=== PATIENT | male | born 1955 | race Caucasian/White ===

== ENCOUNTER 2018-05-30 07:41 | Day surgery (SDC) | payer OTHER ==
--- NOTE | 2018-05-08 09:22 | HP ---
DATE OF ADMISSION: 05/30/2018 HISTORY: This is a 63-year-man who presents for reduction of apparent chronically incarcerated ventral hernia with mesh and possible component separation. The patient has had a progressively enlarging bulge which has become progressively more tender over the course of the past year. He has decided to move in the direction of definitive management. The patient has no underlying GI, or respiratory complaints to suggest a predisposition to hernia formation. PAST MEDICAL HISTORY: Nil. No history of hypertension, heart disease, diabetes , respiratory or hepatic insufficiency. PAST SURGICAL HISTORY: Significant for repair of biceps tendon in 2005 as well as management of a neck mass in 2009. ALLERGIES: None known. REGULAR MEDICATIONS: None. SOCIAL HISTORY: Negative for tobacco. Positive for alcohol at six drinks weekly. FAMILY HISTORY: Parents are both in their 90s with medical issues with which he is unfamiliar. His siblings are well. REVIEW OF SYSTEMS: Nil. PHYSICAL EXAMINATION: The abdomen is obese, soft and nontender. There is an obvious hernia involving the central ring of the abdomen, extending up into the upper midline. There is a large associated diastasis recti. The groin is intact with no groin hernia identified clinically. IMPRESSION: Chronically incarcerated ventral hernia. PLAN: Reduction of apparent chronically incarcerated ventral hernia with mesh and possible component separation repair. Indications, alternatives and possible complications were reviewed. Issues relating to the mesh were reviewed with the patient and include, but are not limited to, infection, rejection, migration and neuritides. Consent was obtained. The patient was seen preoperatively by Dr. Preston Meek. Please refer to his notes for those medical details. WENDY LEWIS M.D. SARAN/[id number] cc: Preston Meek MD MTDD
[2018-05-18 09:40] VITALS: BMI 34.9
[2018-05-30] MEDS ORDERED: TAMSULOSIN HCL 0.4 MG CAP ONE (08:19)
[2018-05-30] MEDS ORDERED: SUCCINYLCHOLINE CHLORIDE 200 MG/10 ML VIAL ONE (08:34)
[2018-05-30] MEDS ORDERED: fentaNYL CITRATE 250 MCG/5 ML VIAL ONE (08:34)
[2018-05-30] MEDS ORDERED: MIDAZOLAM HCL 2 MG/2 ML SINGLE DOSE VIAL ONE ×2 (08:34→08:42)
[2018-05-30] MEDS ORDERED: PROPOFOL 20 ML ONE ×2 (08:34)
[2018-05-30] MEDS ORDERED: ROCURONIUM BROMIDE 50 MG/5 ML VIAL ONE ×2 (08:34→10:04)
[2018-05-30] MEDS ORDERED: ceFAZolin SODIUM 1 GM VIAL ONE (08:41)
[2018-05-30] MEDS ORDERED: DEXAMETHASONE SOD PHOSPHATE 4 MG/1 ML VIAL ONE (08:41)
[2018-05-30] MEDS ORDERED: LIDOCAINE HCL/PF 2% SDV 5ML VIAL ONE (08:41)
[2018-05-30] MEDS ORDERED: ONDANSETRON 4 MG/2 ML VIAL ONE (08:41)
[2018-05-30] MEDS ORDERED: ROPIVACAINE HCL 0.5% 30ML VIAL ONE (08:42)
[2018-05-30] MEDS ORDERED: ePHEDrine SULFATE 50 MG/1 ML AMPULE ONE (10:13)
[2018-05-30] MEDS ORDERED: NEOSTIGMINE METHYLSULFATE 0.5 MG/ML - 10 ML MDV ONE (10:51)
[2018-05-30] MEDS ORDERED: GLYCOPYRROLATE 0.2 MG/1 ML VIAL ONE (10:51)
[2018-05-30] MEDS ORDERED: oxyCODONE HCL 5 MG TABLET PO PRN ×2 (11:48)
[2018-05-30] MEDS ORDERED: ONDANSETRON 4 MG/2 ML VIAL IVPUSH PRN ×2 (11:48→13:50)
[2018-05-30] MEDS ORDERED: LACTATED RINGERS SOLUTION 1,000 ML IV SCH (12:00)
--- NOTE | 2018-05-30 13:33 | OP ---
DATE OF OPERATION: 05/30/2018 PREOPERATIVE DIAGNOSIS: Complex chronically incarcerated ventral hernia. POSTOPERATIVE DIAGNOSIS: Complex chronically incarcerated ventral hernia. PROCEDURE: Bilateral component separation, repair of complex chronically incarcerated ventral hernia with mesh. OPERATING SURGEON: Claudio Lal M.D. STOREROOM CLERK: Cirilo Israel M.D. ANESTHESIA: Hoang Fisher M.D. (general) HISTORY: This is a 63-year-old man who presents for a repair of chronically incarcerated ventral hernia involving the central ring of the abdomen in the upper midline. Indications, alternatives, and possible complications reviewed. Consent obtained. DESCRIPTION OF PROCEDURE: With the patient in the supine position and after general anesthesia, the abdomen was prepped and draped in sterile fashion using chlorhexidine. An upper midline incision was made directly over the hernia and carried inferiorly to a distance several centimeters below the umbilicus. The incision was deepened into the subcutaneous space. The hernia sac was easily encountered and from the surrounding subcutaneous tissue and cleaned to the level of the fascial ring. In the midline superiorly, there were several other smaller defects along the course of the midline in a [id number] fashion. The sac was opened, and the entrapped omentum was reduced. The fascial bridges between the small defects were divided creating one larger defect. Now, directing our attention to the patients right side, the posterior rectus sheath was from the overlying right rectus muscle fibers. This was accomplished using sharp dissection, moving in the inferior, lateral, and superior direction, ultimately arriving at the junction of the rectus musculature with the oblique and transversus muscles. Separation of the overlying right oblique muscles from the underlying right transversus muscle ensued using sharp dissection. The retrorectus space on the right was then extended into this plane, and the dissection again continued inferiorly , laterally, and superiorly. Now, directing our attention to the patients left side, the left posterior rectus sheath was from the overlying left rectus muscle fibers. The retrorectus dissection ensured on the left side again inferiorly, laterally, and superiorly, reaching the junction of the rectus musculature with the oblique and transversus muscles. The left oblique muscles were then bluntly from the underlying transversus muscle creating the same space where an extension of the left retrorectus dissection continued, again inferiorly, laterally, and superiorly. Ultimately, the posterior midline was recreated, closing the posterior sheath in the midline with 3-0 Maxon suture material. The composite mesh was then made at the table using a piece of 15 x 15 cm mesh, which was sutured to a piece of similar sized OviTex mesh. This was accomplished using interrupted 3-0 Vicryl sutures circumferentially. The mesh was soaked in saline and then placed in the retrorectus space where it was fanned out to fill the space completely. The OviTex side down. The permanent mesh side up. Using an AbsorbaTack on counter palpation, the periphery of the mesh was then tacked to the overlying musculature securing the mesh in place. The wound was irrigated and irrigant retrieved. Adequate hemostasis ensured. The midline fascia was closed using interrupted and continuous 0 PDS sutures, leaving the mesh entirely in the retrorectus space. The subcutaneous tissues were irrigated and adequate hemostasis ensured. The wound was closed in layers. Subcutaneous tissues were approximated using interrupted 3-0 chromic suture. The skin edges were approximated using metallic clips. NEEDLE, SPONGE, AND INSTRUMENT COUNT: Correct. ESTIMATED BLOOD LOSS: Minimal. SPECIMENS: None. DRAINS: None. IMPLANTS: Composite mesh. Patient was ultimately transferred to the recovery room. Dipak [id number] MTDD
[2018-05-30] MEDS ORDERED: morphine SULFATE 4 MG/ML VIAL IVPB PRN (13:41)
[2018-05-30] MEDS ORDERED: KETOROLAC TROMETHAMINE 15 MG/ML VIAL IVPB PRN (13:43)
[2018-05-30] MEDS ORDERED: D5-1/2NS+20 MEQ KCL - 20 MEQ/1,000 ML INFUS.BAG IV SCH (13:45)
[2018-05-30] MEDS ORDERED: ACETAMINOPHEN 1000 MG/100 ML VIAL (NON FORMULARY) IVPB ONE (14:00)
[2018-05-30] MEDS ORDERED: ACETAMINOPHEN INJECTION 100 ML IVPB ONE (14:13)
[2018-05-30] MEDS ORDERED: ACETAMINOPHEN 325 MG TABLET (FP) PO PRN (21:00)
[2018-05-30] MEDS: FAMOTIDINE 20 MG/50 ML IVPB 20 MG/50 ML MG IVPB SCH (21:11)
[2018-05-31] MEDS: FAMOTIDINE 20 MG/50 ML IVPB 20 MG/50 ML MG IVPB SCH (09:22)
[2018-05-31] MEDS ORDERED: ENOXAPARIN NA (PORCINE) 40 MG/0.4 ML DISP.SYRIN SQ SCH (10:00)
[2018-05-31 11:37] VITALS: BP 125/66; PULSE 69; TEMP 98.2
== END 2018-05-31 11:32 | disposition home or self-care (01) ==
LOC: FASU 07:41 → FM/S 18:39 → FASU 05-31 11:32
PROVIDERS: ATTEND Surgery
PROC: 0JX80ZC Transfer Abdomen Subcutaneous Tissue and Fascia with Skin, Subcutaneous Tissue and Fascia, Open Approach (ICD-10-PCS; 2018-05-30)
PROC: 0WUF0JZ Supplement Abdominal Wall with Synthetic Substitute, Open Approach (ICD-10-PCS; principal; 2018-05-30 10:05)
DX: K43.6 Other and unspecified ventral hernia with obstruction, without gangrene (principal)
CPT/HCPCS: 94760; J0131

== ENCOUNTER 2019-11-14 07:29 | Day surgery (SDC) | payer OTHER ==
[2019-11-14 08:08] VITALS: BMI 35.7
[2019-11-14] MEDS ORDERED: MIDAZOLAM HCL 2 MG/2 ML SINGLE DOSE VIAL ONE ×2 (08:27→09:05)
[2019-11-14] MEDS ORDERED: ROPIVACAINE HCL 0.5% 30ML VIAL ONE (08:27)
--- NOTE | 2019-11-14 08:27 | OP ---
Operative Note - Note: Operative Date: 11/14/19 Pre-Operative Diagnosis: Rotator cuff tear Operation: Rotator cuff repair Post-Operative Diagnosis: Same as Pre-op Surgeon: Jerry Powell Sdc Teacher: Gerri Valencia Anesthesia: General Operative Report Dictated: Yes
[2019-11-14] MEDS ORDERED: LABETALOL HCL 5 MG/1 ML (100MG/20 ML VIAL) ONE (09:36)
[2019-11-14] MEDS ORDERED: ceFAZolin SODIUM 1 GM VIAL ONE (09:36)
[2019-11-14] MEDS ORDERED: TRANEXAMIC ACID 1000 MG/10 ML VIAL ONE (09:52)
[2019-11-14] MEDS ORDERED: PROPOFOL 20 ML ONE ×3 (10:15→11:54)
[2019-11-14] MEDS ORDERED: LIDOCAINE 1%/EPI 1:100000 (20 ML MULTI DOSE VIAL) ONE (11:20)
[2019-11-14 12:34] VITALS: TEMP 97.5
[2019-11-14] MEDS ORDERED: ONDANSETRON 4 MG/2 ML VIAL IVPUSH PRN (12:42)
[2019-11-14] MEDS ORDERED: oxyCODONE HCL 5 MG TABLET PO PRN ×2 (12:42)
[2019-11-14] MEDS ORDERED: LACTATED RINGERS SOLUTION 1,000 ML IV SCH (12:45)
[2019-11-14 15:21] VITALS: PULSE 54
[2019-11-14 15:43] VITALS: BP 136/86
--- NOTE | 2019-11-15 14:22 | OP ---
DATE OF OPERATION: 11/14/2019 PREOPERATIVE DIAGNOSES: Left shoulder rotator cuff tear, biceps tendinopathy, subacromial impingement. POSTOPERATIVE DIAGNOSES: Left shoulder rotator cuff tear, biceps tendinopathy, subacromial impingement. PROCEDURE: Left shoulder arthroscopy with repair of subscapularis, supraspinatus and infraspinatus, biceps tenodesis and subacromial decompression. SURGEON: Gypsy Silveira MD NARCOTICS AGENT: ALDO Min, whose skillful assistance was necessary for the safe and timely performance of this procedure. Ms. Valencia was available to provide limb positioning, traction, assist in driving the camera, suture passage as well as insertion of orthopedic and hardware. ANESTHESIA: Regional with sedation. POSTOPERATIVE CONDITION: Stable. COMPLICATIONS: None. IMPLANTS: Q-FIX MINI x1, Q-FIX , HEALICOIL PEEK anchor x2, MULTIFIX anchor x2. INDICATION: This is a pleasant 64-year-old gentleman experiencing shoulder pain. He failed to improve with conservative means. MRI was obtained and showed a rotator cuff tear. In addition, he was noted to have biceps tendinopathy and impingement as well. Treatment options were discussed including nonoperative versus operative management. Operative risks were reviewed in detail including bleeding, infection, neurovascular injury, need for further surgery, postoperative pain and stiffness, or re-tear of the cuff. We discussed medical risks such as heart attack, stroke, DVT, PE and . He did receive some perioperative antibiotic and DVT prophylaxis. I addressed all the patient's questions and concerns. We reviewed the rehabilitation protocol. He voiced understanding and elected to proceed. PROCEDURE: the operating room. He was placed into the beach-chair position while still awake. Care was taken in positioning of the cervical spine and pad all the bony prominences. Feet were placed rests. The left upper extremity was then examined, demonstrating full range of motion and no instability. The patient was then prepped and draped in the usual sterile fashion. A preoperative dose of antibiotics was given, and the usual timeout procedure was performed. The shoulder joint was then marked out. The posterior portal was now established using an 11 blade. The arthroscope was passed into the joint. Examination of the glenohumeral joint demonstrated some mild superficial articular wear on the glenoid and humeral surfaces. There was diffuse moderate to severe fraying of the superior labrum extending into the biceps tendon. There was some frayed tissue noted at the upper border of the subscapularis tendon. There was a tear noted in the supraspinatus extending into the infraspinatus. The anterior portal was now established under spinal needle localization. Utilizing a mechanical shaver as well as electrocautery, the superior labrum was debrided. The subscapularis was debrided. Biceps was debrided. The rotator cuff was debrided. visualize the biceps cuff, and there was extensive tendinopathy present. The decision was made to perform a biceps tenodesis. A luggage tag suture was passed using a FirstPast suture through the biceps and then utilizing a mechanical shaver was released from the superior labrum. The superior labrum was debrided using the shaver and electrocautery. The biceps was then retracted into its groove by muscle belly. The attention was turned to the subscapularis. Here, the partial-thickness tear noted. The lesser tuberosity, where the tear was, was debrided using the mechanical shaver. A single was then drilled and inserted at the upper border of the lesser tuberosity. A bird beak suture passer was then used to pass the suture through the subscapularis in simple fashion, securing the subscapularis to the lesser tuberosity. The joint was passed through a range of motion and the repair was found to be stable. A similar debridement of the greater tuberosity was now performed to the joint, and after this was done, the arthroscope was passed into the subacromial space. Here, the rotator cuff tear was visualized. The remainder of the debridement of the was evaluated. The decision was made to perform a double-row repair here. Two medial row anchors were and then inserted. The sutures were then passed through the cuff anteriorly and then posteriorly. At this point, the 2 more anterior sutures were loaded into a MULTIFIX anchor. The anchor was then punched and toggled just lateral to the greater tuberosity, securing the anterior most portion of the cuff down. The same procedure was then repeated posteriorly, and in addition, a luggage tag-type suture was passed between the anterior and posterior sutures on the lateral edge of the cuff to provide additional fixation and prevent dog earring of the tissue. At this point, the cuff was passed through a range of motion and the repair was found to be stable. It should be noted that, prior to starting the cuff repair, a subacromial bursectomy was performed utilizing a shaver as well as the electrocautery. The mechanical shaver was then used to smooth the undersurface of the acromion all the way up to the acromioclavicular joint. At this point, the excess fluid was withdrawn from the subacromial space. The shoulder was reprepped now. An incision was drawn on over the pectoralis tendon. This was the injected subcutaneously with 1% lidocaine with epinephrine. The incision was then carried down through skin, through subcutaneous tissue. Blunt spreading was used to expose the pectoralis tendon. Medial dissection was then carried out to expose the biceps tendon. After freeing the biceps the anterior portion of the bone. An arthroscopic rasp was now passed up and down the biceps groove to provide a good healing surface. Q-FIX anchor drill guide was then inserted into the portion of the biceps groove and the anchor was drilled into place. Good fixation was achieved. The sutures were then whip-stitched. Utilizing a shanel technique, the sutures were then used to pull the biceps back into the groove and then tied in place, securing it. The wound was now copiously irrigated. The sutures were cut prior to irrigation. The subcutaneous tissue was then approximated using 3-0 Vicryl. The skin was closed using running 4-0 nylon. Sterile dressings were then placed. Patient was placed into a sling. He was transferred to the recovery room in stable condition. GYPSY SILVEIRA M.D. [id number]
--- NOTE | 2019-11-19 16:11 | PATH ---
Surgical Pathology Report Patient Name: KARAN GAINES Med. Rec. #: [id number] /Age/Gender: 1955 (Age: 64) / M Account: [id number] Location: [facility], [facility]–1983 AMBULATORY Taken: 11/14/2019 Received: 11/14/2019 Reported: 11/19/2019 Physicians: Jerry Poewll M.D. Specimen(s) Received LEFT BICEP TENDON Clinical History Left shoulder rotator cuff tear Final Diagnosis LEFT BICEP TENDON, RESECTION: SYNOVIAL AND TENDINOUS TISSUE SHOWING FOCAL DEGENERATIVE AND REACTIVE CHANGE. Electronically Signed Milton Galvan M.D. Gross Description Received in formalin labeled "left bicep tendon," is a 6.5 x 1.0 x 0.4 cm schwarz portion of fibrous tissue, consistent with a tendon. Distilling Department Supervisor sections are submitted in one cassette. /11/15/2019 saudi/11/15/2019
== END 2019-11-14 15:00 | disposition home or self-care (01) ==
LOC: FASU 07:29
PROVIDERS: ATTEND Orthopaedic Surgery Sports Medicine
PROC: 0LQ24ZZ Repair Left Shoulder Tendon, Percutaneous Endoscopic Approach (ICD-10-PCS; principal; 2019-11-14 09:37)
PROC: 0LS44ZZ Reposition Left Upper Arm Tendon, Percutaneous Endoscopic Approach (ICD-10-PCS; 2019-11-14 09:37)
PROC: 0RNK4ZZ Release Left Shoulder Joint, Percutaneous Endoscopic Approach (ICD-10-PCS; 2019-11-14 09:37)
DX: M75.122 Complete rotator cuff tear or rupture of left shoulder, not specified as traumatic (principal); M75.22 Bicipital tendinitis, left shoulder; M75.42 Impingement syndrome of left shoulder
CPT/HCPCS: 88304-TC; 94760

== ENCOUNTER 2020-01-20 10:13 | Emergency (ER) | payer OTHER ==
[2020-01-20 10:16] VITALS: TEMP 98.1; BMI 38.3
[2020-01-20] MEDS ORDERED: SODIUM CHLORIDE 500 ML IV STA (10:32)
--- NOTE | 2020-01-20 10:32 | PDOC ---
History of Present Illness - General Chief Complaint: Blood Pressure Problem Stated Complaint: HTN, DIZZY Time Seen by Provider: 01/20/20 10:31 History Source: Patient Exam Limitations: No Limitations - History of Present Illness Initial Comments: 01/20/20 10:53 64y M hx of gout, recent rotator cuff surgery (2 months ago) currently under going PT rpesensts with htn. Patient states that she was doing well, was in physical therapy finishing up when he suddenly felt lightheaded, they checked his blood pressure and noticed it was hypotensive so sent the patient to the ER for evaluation. Patient states that he was otherwise feeling fine recently, he has been told his blood pressure was elevated several months ago by his primary care doctor who noticed that during a routine visit, his plan was to reassess it and see if it improves with behavioral modifications/diet. Patient does note that he occasionally checks his blood pressure at home and it typically is a little bit elevated (150s sbp). He states that this weekend he was out in the sun [place] lot of crabs and drank some alcohol, Daughter thinks maybe this may be related to symptoms today. Otherwise feels okay denies any headache, current chest pain, abdominal pain, nausea vomiting, diaphoresis, back pain, increased extremity edema. Denies any diarrhea, blood per rectum, dysuria. Notes a brief episode of chest burning early this morning that was nonexertional lasting for 1 to 2 minutes that resolved without associated diaphoresis, shortness of breath, dyspnea on exertion. Social history: Works in construction, social alcohol, denies any smoking, recreational drug use PMD: Fader Past History - Medical History Allergies/Adverse Reactions: Allergies Allergy/AdvReac Type Severity Reaction Status Date / Time venom-honey bee Allergy Intermediate hives Verified 01/20/20 10:14 [bee venom (honey bee)] No Known Drug Allergies Allergy Verified 01/20/20 10:14 Home Medications: Ambulatory Orders Allopurinol [Zyloprim -] 150 mg PO DAILY 11/11/19 Colchicine 1 tab PO DAILY 11/11/19 Gabapentin 300 mg PO DAILY 11/11/19 Anemia: No Asthma: No Cancer: No Cardiac Disorders: No CVA: No COPD: No CHF: No Dementia: No Diabetes: No GI Disorders: No Disorders: No HTN: No Hypercholesterolemia: No Liver Disease: No Seizures: No Thyroid Disease: No Other medical history: GOUT - Surgical History Abdominal Surgery: No Appendectomy: No Cardiac Surgery: No Cholecystectomy: No Lung Surgery: No Neurologic Surgery: No Orthopedic Surgery: Yes (L arm tendon repair) - Psycho-Social/Smoking History Smoking History: Never smoked Have you smoked in the past 12 months: No - Substance Abuse Hx (Audit-C & DAST Scrn) How often the patient has a drink containing alcohol: 2-4 times / month Number of drinks the patient has on a typical day: 1 or 2 How often the patient has six or more drinks on one occasion: Never Score: In Men: 4 or > Positive; In Women: 3 or > Positive: 2 Screen Result (Pos requires Nsg. Audit-10AR): Negative In the last yr the pt used illegal drug/Rx for NonMed reason: No Score: Yes response is considered Positive: 0 Screen Result (Positive result requires Nsg. DAST-10): Negative Review of Systems - Review of Systems Able to Perform ROS?: Yes Comments:: 01/20/20 10:56 My constitutional - no reported Fever, Chills, HEENT: no reported vision changes, sore throat Respiratory: no reported cough, sob, hemoptysis Cardiac: +light headedness, no reported chest pain, palpitations, leg swelling Abd/GI: no reported abd pain, nausea, vomiting, blood per rectum, melena, diarrhea : no reported dysuria, frequency, discharge Musculskelatal - no reported back pain, joint swelling skin - no reported bruising, erythema, rash neurological: no reported headache, numbness, focal weakness, tingling, ataxia, hematologic: no reported easy bruising, easy bleeding *Physical Exam - Vital Signs Last Vital Signs Temp Pulse Resp BP Pulse Ox 98.1 F 61 17 188/108 H 97 01/20/20 10:13 01/20/20 10:13 01/20/20 10:13 01/20/20 10:13 01/20/20 10:13 - Physical Exam 01/20/20 10:57 GENERAL: The patient is awake, alert, and fully oriented, Nontoxic - in no acute distress. HEAD: Normocephalic, atraumatic. EYES: extraocular movements intact, sclera anicteric, conjunctiva clear. ENT: Normal voice, Moist mucous membranes. NECK: Normal range of motion, supple LUNGS: Breath sounds equal, clear to auscultation bilaterally. No wheezes, no rhonchi, no rales. HEART: Regular rate and rhythm, normal S1 and S2 without murmur, rub or gallop. ABDOMEN: Soft, nontender, No guarding, no rebound. No CVA tenderness EXTREMITIES: Normal range of motion, bl trace edema. NEUROLOGICAL: No facial assymetry, Normal speech, PSYCH: Normal mood, normal affect. SKIN: Warm, Dry, normal turgor, Heart Score/ECG Review - ECG Impressions Comment:: 01/20/20 10:57 Twelve-lead EKG was performed and reviewed by me. There is normal sinus rhythm with a Rate of 59 The axis is normal. The intervals are normal. No ST changes suggestive of acute ischemia We have made 3 and aVF Impression: Sinus bradycardia ED Treatment Course - LABORATORY CBC & Chemistry Diagram: 01/20/20 10:21 01/20/20 10:21 Medical Decision Making - Medical Decision Making 01/20/20 10:58 His lightheadedness may be secondary to dehydration and salt intake The weekend, will give the patient fluids for hydration, will check his lab work to rule out anemia, metabolic derangement Will obtain EKG and troponin to screen for ACS 01/20/20 12:21 The patient's lab work was reviewed it is unremarkable the patient's EKG also is unremarkable his blood pressure is improved. The patient follow-up with Dr. wesley with outpatient follow-up and monitoring of his blood pressure. I discussed the physical exam findings, ancillary test results and final diagnoses with the patient. I answered all of the patient's questions. The patient was satisfied with the care received and felt comfortable with the discharge plan and treatment plan. The patient will call their primary care physician within 24 hours to arrange follow-up and will return to the Emergency Department with any new, persistent or worsening symptoms. Discharge - Discharge Information Problems reviewed: Yes Clinical Impression/Diagnosis: Lightheaded Hypertension Qualifiers: Hypertension type: unspecified Qualified Code(s): I10 - Essential (primary) hypertension Condition: Improved Disposition: HOME - Admission No - Follow up/Referral Referrals: Preston Meek MD [Primary Care Provider] - - Patient Discharge Instructions Patient Printed Discharge Instructions: DI for High Blood Pressure, How to Monitor Your Blood Pressure at Home Additional Instructions: Return to the emergency department immediately with ANY new, persistent or worsening symptoms including any shortness of breath, chest pain, nausea, vomiting, sweating or any other concerns. Take your blood pressure first in the morning for the next week until you see Dr. Meek You MUST call and follow up with Dr. Michaud in 4 to 5 days for further evaluation Your blood pressure. Results were discussed with you. Please make sure your doctor reviews the results of your emergency evaluation. Your Emergency Department visit is not complete without a follow up with your doctor. Print Language: MOSOTHO - Post Discharge Activity
--- OUTSIDE RECORDS SUMMARY | 2020-01-20 10:58 | XMS ---
:1955 Author Organization [facility] Care Team Providers Name Role Phone AndsergioeStephan C Unavailable Androne, C Unavailable Androne, C Unavailable Androne, C Unavailable Androne, C Unavailable Androne, C Unavailable Androne, C Unavailable Androne, C Unavailable Fader, M Unavailable Fader, M Unavailable Fader, M Unavailable Fader, M Unavailable Fader, M Unavailable Fader, M Unavailable Fader, M Unavailable Fader, M Unavailable Fader, M Unavailable Fader, M Unavailable Fader, M Unavailable Fader, M Unavailable Fader, M Unavailable Fader, M Unavailable Re-disclosure Warning The records that you are about to access may contain information from federally- assisted alcohol or drug abuse programs. If such information is present, then the following federally mandated warning applies: This information has been disclosed to you from records protected by federal confidentiality rules (42 CFR part 2). The federal rules prohibit you from making any further disclosure of this information unless further disclosure is expressly permitted by the written consent of the person to whom it pertains or as otherwise permitted by 42 CFR part 2. A general authorization for the release of medical or other information is NOT sufficient for this purpose. The Federal rules restrict any use of the information to criminally investigate or prosecute any alcohol or drug abuse patient.The records that you are about to access may contain highly sensitive health information, the redisclosure of which is protected by Article 27-F of the [facility] Public Health law. If you continue you may haveaccess to information: Regarding HIV / AIDS; Provided by facilities licensed or operated by the [facility] Office of Mental Health; or Provided by the [facility] Office for People With Developmental Disabilities. If such information is present, then the following [facility] mandated warning applies: This information has been disclosed to you from confidential records which are protected by state law. State law prohibits you from making any further disclosure of this information without the specific written consent of the person to whom it pertains, or as otherwise permitted by law. Any unauthorized further disclosure in violation of state law may result in a fine or residential sentence or both. A general authorization for the release of medical or other information is NOT sufficient authorization for further disclosure. Allergies and Adverse Reactions Type Description Substance Reaction Status Data Source(s ) Allergy to APIS MELLIFERA Synonym(s): BEE Active MEDGE N (St Substance VENOM VENOM; [facility], BEE VENOM; APIS PC) VENENUM PURUM [HPUS]; BEE VENOM [INCI]; BEE VENOM [WHO-DD]; APIS VENENUM PURUM; ABEILLE DOMESTIQUE VENOM; ALLERGENIC EXTRACT, HONEY BEE VENOM; HONEY BEE VENOM PROTEIN; APIS MELLIFERA VENOM PROTEIN EXTRACT; ALLERGENIC EXTRACT, HONEY BEE VENOM [VANDF]; HONEYBEE VENOM; ALLERGENIC EXTRACT- HONEY BEE VENOM; APIS MELLIFERA WHITNEY PROTEIN; AE-VENOM, HONEY BEE; HONEY BEE VENOM; VENOMS, HONEY BEE VENOM Allergy to APIS MELLIFERA Synonym(s): BEE Active MEDGE N (St Substance VENOM VENOM; [place]; APIS PC) VENENUM PURUM [HPUS]; BEE VENOM [INCI]; BEE VENOM [WHO-DD]; APIS VENENUM PURUM; ABEILLE DOMESTIQUE VENOM; ALLERGENIC EXTRACT, HONEY BEE VENOM; HONEY BEE VENOM PROTEIN; APIS MELLIFERA VENOM PROTEIN EXTRACT; ALLERGENIC EXTRACT, HONEY BEE VENOM [VANDF]; HONEYBEE VENOM; ALLERGENIC EXTRACT- HONEY BEE VENOM; APIS MELLIFERA WHITNEY PROTEIN; AE-VENOM, HONEY BEE; HONEY BEE VENOM; VENOMS, HONEY BEE VENOM Allergy to APIS MELLIFERA Synonym(s): BEE Active MEDGE N (St Substance VENOM VENOM; [place] VENOM; APIS PC) VENENUM PURUM [HPUS]; BEE VENOM [INCI]; BEE VENOM [WHO-DD]; APIS VENENUM PURUM; ABEILLE DOMESTIQUE VENOM; ALLERGENIC EXTRACT, HONEY BEE VENOM; HONEY BEE VENOM PROTEIN; APIS MELLIFERA VENOM PROTEIN EXTRACT; ALLERGENIC EXTRACT, HONEY BEE VENOM [VANDF]; HONEYBEE VENOM; ALLERGENIC EXTRACT- HONEY BEE VENOM; APIS MELLIFERA WHITNEY PROTEIN; AE-VENOM, HONEY BEE; HONEY BEE VENOM; VENOMS, HONEY BEE VENOM Encounters Encounter Providers Location Date Indications Data Source(s ) Attender: Preston 11/20/2019 MEDGEN ( [facility] 12:00:00 AM [facility]) Telehealth Attender: Preston Meek 11/20/2019 12:00:00 AM E DT MEDGEN ([facility]) Telehealth Attender: Preston Meek 11/20/2019 12:00:00 AM E DT MEDGEN ([facility]) Telehealth Attender: Preston Meek 11/20/2019 12:00:00 AM E DT MEDGEN ([facility]) Telehealth Attender: Stephan Johnson 11/11/2019 12:00:00 AM EDT MEDGEN ([facility]) Office Attender: Stephan Johnson 11/11/2019 12:00:00 AM EDT MEDGEN ([facility]) Office Attender: Stephan Johnson 11/11/2019 12:00:00 AM EDT MEDGEN ([facility]) Office Attender: Stephan Johnson 11/11/2019 12:00:00 AM EDT MEDGEN ([facility]) Office Attender: Stephan Johnson 11/11/2019 12:00:00 AM EDT MEDGEN ([facility]) Office Attender: Preston Meek 10/09/2019 12:00:00 AM E DT MEDGEN ([facility]) Office Attender: Preston Meek 10/09/2019 12:00:00 AM E DT MEDGEN ([facility]) Office Attender: Preston Meek 10/09/2019 12:00:00 AM E DT MEDGEN ([facility]) Office Attender: Preston Meek 10/09/2019 12:00:00 AM E DT MEDGEN ([facility]) Office Attender: Preston Meek 10/09/2019 12:00:00 AM E DT MEDGEN ([facility]) Office Attender: Preston Meek 10/09/2019 12:00:00 AM E DT MEDGEN ([facility]) Office Medications Medication Brand Start Product Dose Route Administrative Pharmacy [facility] Heart Indications Reaction Description Data Name Date Form Instructions Instructions Source(s) gabapentin GABAPE 11/19/ CAPSULE 60 complet SUSU PENTIN MEDGEN (St 300 MG Oral NTIN:3 2019 ed [facility] Capsule 02888 12:00: Medical, GABAPENTIN: 00 AM PC) [id number] EDT Allopurinol ALLOPU 10/08/ TABLET 30 complet ALLO PURINOL MEDGEN (St 100 MG Oral RINOL: 2019 ed [facility] Tablet [id number] 12:00: Medical, ALLOPURINOL 00 AM PC) :[id number] EDT Cholecalcif VITAMI 10/08/ TABLET 30 complet EULALIO MIN D3 MEDGEN (St yandy 2000 N 2019 ed [facility] UNT Oral D3:801 12:00: Medical , Tablet 663 00 AM PC) VITAMIN EDT [id number] Allopurinol ALLOPU 10/08/ TABLET 30 complet ALLO PURINOL MEDGEN (St 100 MG Oral RINOL: 2019 ed [facility] Tablet [id number] 12:00: Medical, ALLOPURINOL 00 AM PC) :[id number] EDT Colchicine COLCHI 17/ TABLET 30 complet COLCH ICINE MEDGEN (St 0.6 MG Oral CINE:1 2019 ed [facility] Tablet [id number] 12:00: Medical, COLCHICINE: 00 AM PC) [id number] EDT Famotidine FAMOTI /17/ TABLET 180 complet FAMOT IDINE MED[facility] (St 20 MG Oral DINE:3 2019 ed [facility] Tablet [id number] 12:00: Medical, FAMOTIDINE: 00 AM PC) [id number] EDT Famotidine FAMOTI /17/ TABLET 180 complet FAMOT IDINE MEDGEN (St 20 MG Oral DINE:3 2019 ed [facility] Tablet 84101 12:00: Medical, FAMOTIDINE: 00 AM PC) [id number] EDT Famotidine FAMOTI /17/ TABLET 180 complet FAMOT IDINE MEDGEN (St 20 MG Oral DINE:3 2019 ed [facility] Tablet 54224 12:00: Medical, FAMOTIDINE: 00 AM PC) [id number] EDT Colchicine COLCHI 17/ TABLET 30 complet COLCH ICINE MEDGEN (St 0.6 MG Oral CINE:1 2019 ed [facility] Tablet 60115 12:00: Medical, COLCHICINE: 00 AM PC) [id number] EDT Cholecalcif VITAMI 17/ TABLET 30 complet EULALIO MIN D3 MEDGEN (St yandy 1999 N 2019 ed [facility] UNT Oral D3:801 12:00: Medical , Tablet 663 00 AM PC) VITAMIN EDT D3:707489 Allopurinol ALLOPU 17/ TABLET 30 complet ALLO PURINOL MEDGEN (St 100 MG Oral RINOL: 2019 ed [facility] Tablet [id number] 12:00: Medical, ALLOPURINOL 00 AM PC) :[id number] EDT Cholecalcif VITAMI /17/ TABLET 30 complet EULALIO MIN D3 MEDGEN (St yandy 1999 N 2019 ed [facility] UNT Oral D3:801 12:00: Medical , Tablet 663 00 AM PC) VITAMIN EDT D3:671105 Colchicine COLCHI /17/ TABLET 30 complet COLCH ICINE MEDGEN (St 0.6 MG Oral CINE:1 2019 ed [facility] Tablet 23756 12:00: Medical, COLCHICINE: 00 AM PC) [id number] EDT Insurance Providers Payer name Policy type Policy ID Covered Covered libertarian's Policy P jennifer / Coverage libertarian ID relationship to [facility] Inf ormation type mcclain [facility] [id number] [employer] [place] [id number] HEALTHCARE [facility] [id number] S [id number] 396 CARE HMO/POS/EPO [facility] [id number] 396 CARE HMO/POS/EPO [facility] [id number] [place] [id number] 396 CARE HMO/POS/EPO Problems, Conditions, and Diagnoses Code Display Name Description Problem Effective Data Type Dates Source(s) Z47.1 Aftercare following AFTERCARE FOLLOWING Problem 020 MEDGEN (St joint replacement JOINT REPLACEMENT 12:00:00 AM [facility] surgery SURGERY [facility], ) R73.01 Impaired fasting IMPAIRED FASTING Problem 11/11/2019 ME DGEN (St glucose GLUCOSE 12:00:00 AM [facility]) M75.102 Unspecified rotator UNSPECIFIED ROTATOR Problem 020 MEDGEN (St cuff tear or rupture CUFF TEAR OR RUPTURE 12:00 :00 AM [facility] of left shoulder, OF LEFT SHOULDER, [facility], ) not specified as NOT SPECIFIED traumatic TRAUMATIC E78.5 Hyperlipidemia, HYPERLIPIDEMIA, Problem 11/11/2019 MEDG EN (St unspecified UNSPECIFIED 12:00:00 AM [facility], ) R03.0 Elevated ELEVATED Problem 11/11/2019 MEDGEN (St blood-pressure BLOOD-PRESSURE 12:00:00 AM [facility] reading, without READING, WITHOUT EDT [facility], ) diagnosis of DIAGNOSIS OF hypertension HYPERTENSION R73.01 Impaired fasting IMPAIRED FASTING Problem 11/11/2019 ME DGEN (St glucose GLUCOSE 12:00:00 AM [facility], ) M75.102 Unspecified rotator UNSPECIFIED ROTATOR Problem 020 MEDGEN (St cuff tear or rupture CUFF TEAR OR RUPTURE 12:00 :00 AM [facility] of left shoulder, OF LEFT SHOULDER, [facility], ) not specified as NOT SPECIFIED traumatic TRAUMATIC E78.5 Hyperlipidemia, HYPERLIPIDEMIA, Problem 11/11/2019 MEDG EN (St unspecified UNSPECIFIED 12:00:00 AM [facility], ) R03.0 Elevated ELEVATED Problem 11/11/2019 MEDGEN (St blood-pressure BLOOD-PRESSURE 12:00:00 AM [facility] reading, without READING, WITHOUT EDT [facility], ) diagnosis of DIAGNOSIS OF hypertension HYPERTENSION M79.603 Pain in arm, PAIN IN ARM, Problem 10/09/2019 MEDGEN (St unspecified UNSPECIFIED 12:00:00 AM [facility]'s EDT [facility], ) M79.602 Pain in left arm PAIN IN LEFT ARM Problem 10/09/2019 ME DGEN (St 12:00:00 AM [facility]'s EDT [facility], ) G47.8 Other sleep OTHER SLEEP Problem 10/09/2019 MEDGEN (St disorders DISORDERS 12:00:00 AM [facility]'s EDT [facility], ) M25.552 Pain in left hip PAIN IN LEFT HIP Problem 10/09/2019 ME DGEN (St 12:00:00 AM [facility]'s EDT [facility], ) M25.512 Pain in left PAIN IN LEFT Problem 10/09/2019 MEDGEN (St shoulder SHOULDER 12:00:00 AM [facility]'s EDT [facility], ) M79.603 Pain in arm, PAIN IN ARM, Problem 10/09/2019 MEDGEN (St unspecified UNSPECIFIED 12:00:00 AM [facility] EDT Medical, ) M79.602 Pain in left arm PAIN IN LEFT ARM Problem 10/09/2019 ME DGEN (St 12:00:00 AM [facility]'s EDT [facility], ) G47.8 Other sleep OTHER SLEEP Problem 10/09/2019 MEDGEN (St disorders DISORDERS 12:00:00 AM [facility] EDT Medical, ) M25.552 Pain in left hip PAIN IN LEFT HIP Problem 10/09/2019 ME DGEN (St 12:00:00 AM [facility]'s EDT [facility], ) M25.512 Pain in left PAIN IN LEFT Problem 10/09/2019 MEDGEN (St shoulder SHOULDER 12:00:00 AM [facility] EDT Medical, ) M79.603 Pain in arm, PAIN IN ARM, Problem 10/09/2019 MEDGEN (St unspecified UNSPECIFIED 12:00:00 AM [facility] EDT Medical, ) M79.602 Pain in left arm PAIN IN LEFT ARM Problem 10/09/2019 ME DGEN (St 12:00:00 AM [facility]'s EDT [facility], ) G47.8 Other sleep OTHER SLEEP Problem 10/09/2019 MEDGEN (St disorders DISORDERS 12:00:00 AM [facility], ) M25.552 Pain in left hip PAIN IN LEFT HIP Problem 10/09/2019 ME DGEN (St 12:00:00 AM [facility], ) M25.512 Pain in left PAIN IN LEFT Problem 10/09/2019 MEDGEN (St shoulder SHOULDER 12:00:00 AM [facility], ) M10.9 Gout, unspecified GOUT, UNSPECIFIED Problem 05/31/2019 MEDGEN (St 12:00:00 AM [facility]'s [facility], ) J06.9 Acute upper ACUTE UPPER Problem 05/31/2019 MEDGEN (St respiratory RESPIRATORY 12:00:00 AM [facility] infection, INFECTION, EST Medical, ) unspecified UNSPECIFIED M10.9 Gout, unspecified GOUT, UNSPECIFIED Problem 05/31/2019 MEDGEN (St 12:00:00 AM [facility]'s [facility], ) J06.9 Acute upper ACUTE UPPER Problem 05/31/2019 MEDGEN (St respiratory RESPIRATORY 12:00:00 AM [facility] infection, INFECTION, EST Medical, ) unspecified UNSPECIFIED M10.9 Gout, unspecified GOUT, UNSPECIFIED Problem 05/31/2019 MEDGEN (St 12:00:00 AM [facility]'s [facility], ) J06.9 Acute upper ACUTE UPPER Problem 05/31/2019 MEDGEN (St respiratory RESPIRATORY 12:00:00 AM [facility] infection, INFECTION, EST Medical, ) unspecified UNSPECIFIED E66.09 Other obesity due to OTHER OBESITY DUE TO Problem 05/17 MEDGEN (St excess calories EXCESS CALORIES 12:00:00 AM [facility]'s [facility], ) Z01.818 Encounter for other ENCOUNTER FOR OTHER Problem 019 MEDGEN (St preprocedural PREPROCEDURAL 12:00:00 AM [facility] examination EXAMINATION [facility] Medical, ) E66.09 Other obesity due to OTHER OBESITY DUE TO Problem 05/17 MEDGEN (St excess calories EXCESS CALORIES 12:00:00 AM [facility] n's [facility], ) Z01.818 Encounter for other ENCOUNTER FOR OTHER Problem 019 MEDGEN (St preprocedural PREPROCEDURAL 12:00:00 AM [facility], ) E66.09 Other obesity due to OTHER OBESITY DUE TO Problem 05/17 MEDGEN (St excess calories EXCESS CALORIES 12:00:00 AM [facility], ) Z01.818 Encounter for other ENCOUNTER FOR OTHER Problem 019 MEDGEN (St preprocedural PREPROCEDURAL 12:00:00 AM [facility] examination EXAMINATION [facility], ) R05 Cough COUGH Problem 03/02/2018 MEDGEN (St 12:00:00 AM [facility], ) R05 Cough COUGH Problem 03/02/2018 MEDGEN (St 12:00:00 AM [facility], ) R05 Cough COUGH Problem 03/02/2018 MEDGEN (St 12:00:00 AM [facility], ) 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, ) R29.898 Other symptoms and OTHER SYMPTOMS AND Problem 07/17/201 8 MEDGEN (St signs involving the SIGNS INVOLVING THE 12:00:0 0 AM [facility] musculoskeletal MUSCULOSKELETAL EDT 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, ) R29.898 Other symptoms and OTHER SYMPTOMS AND Problem 8 MEDGEN (St signs involving the SIGNS INVOLVING THE 12:00:0 0 AM [facility] musculoskeletal MUSCULOSKELETAL EDT [facility], ) system SYSTEM I10 Essential (primary) ESSENTIAL (PRIMARY) Problem 018 MEDGEN (St hypertension HYPERTENSION 12:00:00 AM [facility], ) I10 Essential (primary) ESSENTIAL (PRIMARY) Problem 018 MEDGEN (St hypertension HYPERTENSION 12:00:00 AM [facility], ) I10 Essential (primary) ESSENTIAL (PRIMARY) Problem 018 MEDGEN (St hypertension HYPERTENSION 12:00:00 AM [facility], ) Surgeries/Procedures Procedure Description Date Indications Data Source(s) Documentation of current 11/20/2019 MED GEN ([facility] medications (procedure) 12:00:00 AM EDT [facility], ) Documentation of current 11/20/2019 MED GEN ([facility] medications (procedure) 12:00:00 AM EDT [facility], ) OFFICE OUTPATIENT VISIT 11/20/2019 MEDG EN ([facility] 15 MINUTES 12:00:00 AM [facility], ) Documentation of current 11/11/2019 MED GEN ([facility] medications (procedure) 12:00:00 AM EDT [facility], ) Documentation of current 11/11/2019 MED GEN ([facility] medications (procedure) 12:00:00 AM EDT [facility], ) Documentation of current 11/11/2019 MED GEN ([facility] medications (procedure) 12:00:00 AM EDT [facility], PC) Documentation of current 11/11/2019 MED GEN ([facility] medications (procedure) 12:00:00 AM EDT [facility], PC) OFFICE OUTPATIENT VISIT 11/11/2019 MEDG EN ([facility] 25 MINUTES 12:00:00 AM [facility] Medical, ) Documentation of current 11/11/2019 MED GEN ([facility] medications (procedure) 12:00:00 AM EDT [facility], PC) Documentation of current 11/11/2019 MED GEN ([facility] medications (procedure) 12:00:00 AM EDT [facility], PC) Documentation of current 11/11/2019 MED GEN ([facility] medications (procedure) 12:00:00 AM EDT [facility], PC) OFFICE OUTPATIENT VISIT 11/11/2019 MEDG EN ([facility] 25 MINUTES 12:00:00 AM [facility], ) Documentation of current 10/09/2019 MED GEN ([facility] medications (procedure) 12:00:00 AM EDT [facility], PC) Documentation of current 10/09/2019 MED GEN ([facility] medications (procedure) 12:00:00 AM EDT [facility], PC) Documentation of current 10/09/2019 MED GEN ([facility] medications (procedure) 12:00:00 AM EDT [facility], PC) Documentation of current 10/09/2019 MED GEN ([facility] medications (procedure) 12:00:00 AM EDT [facility], PC) Documentation of current 10/09/2019 MED GEN ([facility] medications (procedure) 12:00:00 AM EDT [facility], PC) Documentation of current 10/09/2019 MED GEN ([facility] medications (procedure) 12:00:00 AM EDT [facility], PC) Documentation of current 10/09/2019 MED GEN ([facility] medications (procedure) 12:00:00 AM EDT [facility], PC) Documentation of current 10/09/2019 MED GEN ([facility] medications (procedure) 12:00:00 AM EDT [facility], PC) Documentation of current 10/09/2019 MED GEN ([facility] medications (procedure) 12:00:00 AM EDT [facility], PC) Documentation of current 10/09/2019 MED GEN ([facility] medications (procedure) 12:00:00 AM EDT [facility], PC) Documentation of current 10/09/2019 MED GEN ([facility] medications (procedure) 12:00:00 AM EDT [facility], PC) Documentation of current 10/09/2019 MED GEN ([facility] medications (procedure) 12:00:00 AM EDT [facility], PC) Documentation of current 10/09/2019 MED GEN ([facility] medications (procedure) 12:00:00 AM EDT [facility], PC) ECG ROUTINE ECG W/LEAST 10/09/2019 MEDG EN ([facility] 12 LDS W/I&R 12:00:00 AM [facility], ) Documentation of current 10/09/2019 MED GEN ([facility] medications (procedure) 12:00:00 AM EDT [facility], PC) Documentation of current 10/09/2019 MED GEN ([facility] medications (procedure) 12:00:00 AM EDT [facility], PC) Documentation of current 10/09/2019 MED GEN ([facility] medications (procedure) 12:00:00 AM EDT [facility], PC) Documentation of current 10/09/2019 MED GEN ([facility] medications (procedure) 12:00:00 AM EDT [facility], PC) Documentation of current 10/09/2019 MED GEN ([facility] medications (procedure) 12:00:00 AM EDT edical, PC) Documentation of current 10/09/2019 MED GEN ([facility] medications (procedure) 12:00:00 AM EDT [facility], PC) Documentation of current 10/09/2019 MED GEN ([facility] medications (procedure) 12:00:00 AM EDT edical, PC) Documentation of current 10/09/2019 MED GEN ([facility] medications (procedure) 12:00:00 AM EDT [facility], PC) Documentation of current 10/09/2019 MED GEN ([facility] medications (procedure) 12:00:00 AM EDT [facility]ical, PC) Documentation of current 10/09/2019 MED GEN ([facility] medications (procedure) 12:00:00 AM EDT [facility], PC) Documentation of current 10/09/2019 MED GEN ([facility] medications (procedure) 12:00:00 AM EDT [facility], PC) Documentation of current 10/09/2019 MED GEN ([facility] medications (procedure) 12:00:00 AM EDT [facility], PC) Documentation of current 10/09/2019 MED GEN ([facility] medications (procedure) 12:00:00 AM EDT [facility], PC) ECG ROUTINE ECG W/LEAST 10/09/2019 MEDG EN ([facility] 12 LDS W/I&R 12:00:00 AM [facility], ) Documentation of current 10/09/2019 MED GEN ([facility] medications (procedure) 12:00:00 AM EDT [facility], PC) Documentation of current 10/09/2019 MED GEN ([facility] medications (procedure) 12:00:00 AM EDT [facility], PC) Documentation of current 10/09/2019 MED GEN ([facility] medications (procedure) 12:00:00 AM EDT [facility], PC) Documentation of current 10/09/2019 MED GEN ([facility] medications (procedure) 12:00:00 AM EDT [facility], PC) Documentation of current 10/09/2019 MED GEN ([facility] medications (procedure) 12:00:00 AM EDT [facility], PC) Documentation of current 10/09/2019 MED GEN ([facility] medications (procedure) 12:00:00 AM EDT [facility], PC) Documentation of current 10/09/2019 MED GEN ([facility] medications (procedure) 12:00:00 AM EDT [facility], PC) Documentation of current 10/09/2019 MED GEN ([facility] medications (procedure) 12:00:00 AM EDT [facility], PC) Documentation of current 10/09/2019 MED GEN ([facility] medications (procedure) 12:00:00 AM EDT [facility], PC) Documentation of current 10/09/2019 MED GEN ([facility] medications (procedure) 12:00:00 AM EDT [facility], PC) Documentation of current 10/09/2019 MED GEN ([facility] medications (procedure) 12:00:00 AM EDT [facility], PC) ECG ROUTINE ECG W/LEAST 10/09/2019 MEDG EN ([facility] 12 LDS W/I&R 12:00:00 AM [facility] Isabel) Documentation of current 05/31/2019 MED GEN ([facility] medications (procedure) 12:00:00 AM [facility] Stevens) Documentation of current 05/31/2019 MED GEN ([facility] medications (procedure) 12:00:00 AM [facility] Stevens) Documentation of current 05/31/2019 MED GEN ([facility] medications (procedure) 12:00:00 AM [facility] Stevens) Documentation of current 05/31/2019 MED GEN ([facility] medications (procedure) 12:00:00 AM [facility] Stevens) Documentation of current 05/31/2019 MED GEN ([facility] medications (procedure) 12:00:00 AM [facility]I Stveens) Documentation of current 05/31/2019 MED GEN ([facility] medications (procedure) 12:00:00 AM [facility] Stevens) Documentation of current 05/31/2019 MED GEN ([facility] medications (procedure) 12:00:00 AM [facility] Stevens) OFFICE OUTPATIENT VISIT 05/31/2019 MEDG EN ([facility] 15 MINUTES 12:00:00 AM L[facility]I Jackson) Documentation of current 05/31/2019 MED GEN ([facility] medications (procedure) 12:00:00 AM [facility] Stevens) Documentation of current 05/31/2019 MED GEN ([facility] medications (procedure) 12:00:00 AM [facility] Stevens) Documentation of current 05/31/2019 MED GEN ([facility]ram[facility] medications (procedure) 12:00:00 AM LALI Stevens) Documentation of current 05/31/2019 MED GEN (Bertram's medications (procedure) 12:00:00 AM LALI Stevens) Documentation of current 05/31/2019 MED GEN (Bertram's medications (procedure) 12:00:00 AM LALI Stevens) Documentation of current 05/31/2019 MED GEN (Bertram's medications (procedure) 12:00:00 AM LALI Stevens) Documentation of current 05/31/2019 MED GEN (Bertram's medications (procedure) 12:00:00 AM TANIA boyer, LALI) OFFICE OUTPATIENT VISIT 05/31/2019 MEDG EN ([facility] 15 MINUTES 12:00:00 AM TANIA Castaneda, PC) Documentation of current 05/31/2019 MED GEN (Bertram's medications (procedure) 12:00:00 AM TANIA boyer, PC) Documentation of current 05/31/2019 MED GEN (Bertram's medications (procedure) 12:00:00 AM LALI Stevens) Documentation of current 05/31/2019 MED GEN (Bertram's medications (procedure) 12:00:00 AM TANIA boyer, PC) Documentation of current 05/31/2019 MED GEN (Bertram's medications (procedure) 12:00:00 AM TANIA boyer PC) Documentation of current 05/31/2019 MED GEN (Bertram's medications (procedure) 12:00:00 AM TANIA boyer, PC) Documentation of current 05/31/2019 MED GEN ([facility]ram's medications (procedure) 12:00:00 AM TANIA boyer, LALI) Documentation of current 05/31/2019 MED GEN ([facility]ram[facility] medications (procedure) 12:00:00 AM TANIA boyer, LALI) OFFICE OUTPATIENT VISIT 05/31/2019 MEDG EN ([facility] 15 MINUTES 12:00:00 AM TANIA Castaneda, PC) Documentation of current 05/17/2018 MED GEN (Bertram's medications (procedure) 12:00:00 AM TANIA boyer, PC) Documentation of current 05/17/2018 MED GEN ([facility]ram[facility] medications (procedure) 12:00:00 AM LALI Stevens) Documentation of current 05/17/2018 MED GEN ([facility]ram's medications (procedure) 12:00:00 AM TANIA boyer, PC) Documentation of current 05/17/2018 MED GEN ([facility]ram[facility] medications (procedure) 12:00:00 AM TANIA boyer, PC) Documentation of current 05/17/2018 MED GEN ([facility]ram[facility] medications (procedure) 12:00:00 AM TANIA boyer, PC) Documentation of current 05/17/2018 MED GEN ([facility]ram's medications (procedure) 12:00:00 AM TANIA boyer, PC) OFFICE OUTPATIENT VISIT 05/17/2018 MEDG EN ([facility] 25 MINUTES 12:00:00 AM EST Medical, PC) ECG ROUTINE ECG W/LEAST 05/17/2018 MEDG EN ([facility] 12 LDS W/I&R 12:00:00 AM EST Medical, PC) Documentation of current 05/17/2018 MED GEN (Bertram's medications (procedure) 12:00:00 AM EST Crissy boyer, PC) Documentation of current 05/17/2018 MED GEN ([facility]ram's medications (procedure) 12:00:00 AM EST Crissy boyer, PC) Documentation of current 05/17/2018 MED GEN ([facility]ram's medications (procedure) 12:00:00 AM EST Crissy boyer, PC) Documentation of current 05/17/2018 MED GEN ([facility]ram[facility] medications (procedure) 12:00:00 AM EST Crissy boyer, PC) Documentation of current 05/17/2018 MED GEN ([facility]ram[facility] medications (procedure) 12:00:00 AM EST Crissy boyer, PC) Documentation of current 05/17/2018 MED GEN ([facility]ram's medications (procedure) 12:00:00 AM EST Crissy boyer, PC) OFFICE OUTPATIENT VISIT 05/17/2018 MEDG EN ([facility] 25 MINUTES 12:00:00 AM EST Medical, PC) ECG ROUTINE ECG W/LEAST 05/17/2018 MEDG EN ([facility] 12 LDS W/I&R 12:00:00 AM EST Medical, PC) Documentation of current 05/17/2018 MED GEN ([facility]ram[facility] medications (procedure) 12:00:00 AM TANIA boyer, PC) Documentation of current 05/17/2018 MED GEN ([facility]ram[facility] medications (procedure) 12:00:00 AM TANIA boyer, PC) Documentation of current 05/17/2018 MED GEN ([facility]ram[facility] medications (procedure) 12:00:00 AM EST Crissy boyer, PC) Documentation of current 05/17/2018 MED GEN ([facility] medications (procedure) 12:00:00 AM EST Crissy boyer, PC) Documentation of current 05/17/2018 MED GEN ([facility]ram's medications (procedure) 12:00:00 AM EST Crissy boyer, PC) Documentation of current 05/17/2018 MED GEN (Bertram's medications (procedure) 12:00:00 AM EST [facility], ) OFFICE OUTPATIENT VISIT 05/17/2018 MEDG EN ([facility] 25 MINUTES 12:00:00 AM EST Medical, ) ECG ROUTINE ECG W/LEAST 05/17/2018 MEDG EN ([facility] 12 LDS W/I&R 12:00:00 AM EST [facility], ) Documentation of current 03/02/2018 MED GEN (Bertram's medications (procedure) 12:00:00 AM EST [facility], ) OFFICE OUTPATIENT VISIT 03/02/2018 MEDG EN ([facility] 15 MINUTES 12:00:00 AM [facility], ) Documentation of current 03/02/2018 MED GEN (Bertram's medications (procedure) 12:00:00 AM EST [facility], ) OFFICE OUTPATIENT VISIT 03/02/2018 MEDG EN ([facility] 15 MINUTES 12:00:00 AM [facility] Medical, ) Documentation of current 03/02/2018 MED GEN (Bertram's medications (procedure) 12:00:00 AM EST [facility], ) OFFICE OUTPATIENT VISIT 03/02/2018 MEDG EN ([facility] 15 MINUTES 12:00:00 AM [facility], ) Documentation of current 11/07/2017 MED GEN [facility]ation of current 11/07/2017 MED GEN (Bertram's medications (procedure) 12:00:00 AM EDT [facility], ) ECG ROUTINE ECG W/LEAST 11/07/2017 MEDG EN ([facility] 12 LDS W/I&R 12:00:00 AM [facility], ) Documentation of current 11/07/2017 MED GEN (Bertram's medications (procedure) 12:00:00 AM [facility], ) Documentation of current 11/07/2017 MED GEN (Bertram's medications (procedure) 12:00:00 AM EDT [facility], ) ECG ROUTINE ECG W/LEAST 11/07/2017 MEDG EN ([facility] 12 LDS W/I&R 12:00:00 AM [facility], ) Documentation of current 11/07/2017 MED GEN ([facility]ram's medications (procedure) 12:00:00 AM EDT M edical, PC) Documentation of current 11/07/2017 MED GEN ([facility]ram's medications (procedure) 12:00:00 AM EDT edical, PC) ECG ROUTINE ECG W/LEAST 11/07/2017 MEDG EN ([facility] 12 LDS W/I&R 12:00:00 AM EDT Medical, ) Documentation of current 08/09/2017 MED GEN ([facility]ram's medications (procedure) 12:00:00 AM EDT edical, PC) Documentation of current 08/09/2017 MED GEN ([facility]ram's medications (procedure) 12:00:00 AM EDT edical, PC) Documentation of current 08/09/2017 MED GEN ([facility]ram's medications (procedure) 12:00:00 AM EDT edical, PC) Documentation of current 08/09/2017 MED GEN ([facility]ram's medications (procedure) 12:00:00 AM EDT edical, PC) OFFICE OUTPATIENT VISIT 08/09/2017 MEDG EN ([facility] 15 MINUTES 12:00:00 AM EDT Medical, PC) Documentation of current 08/09/2017 MED GEN ([facility]ram's medications (procedure) 12:00:00 AM EDT edical, PC) Documentation of current 08/09/2017 MED GEN ([facility]ram's medications (procedure) 12:00:00 AM EDT edical, PC) Documentation of current 08/09/2017 MED GEN ([facility]'s medications (procedure) 12:00:00 AM EDT edical, PC) Documentation of current 08/09/2017 MED GEN ([facility]ram's medications (procedure) 12:00:00 AM EDT edical, PC) OFFICE OUTPATIENT VISIT 08/09/2017 MEDG EN ([facility] 15 MINUTES 12:00:00 AM EDT Medical, PC) Documentation of current 08/09/2017 MED GEN ([facility]ram's medications (procedure) 12:00:00 AM EDT edical, PC) Documentation of current 08/09/2017 MED GEN ([facility]ram's medications (procedure) 12:00:00 AM EDT edical, PC) Documentation of current 08/09/2017 MED GEN ([facility] medications (procedure) 12:00:00 AM EDT edical, PC) Documentation of current 08/09/2017 MED GEN ([facility]ram's medications (procedure) 12:00:00 AM EDT M edical, PC) OFFICE OUTPATIENT VISIT 08/09/2017 MEDG EN ([facility] 15 MINUTES 12:00:00 AM EDT Medical, PC) Colonoscopy (procedure) 03/26/2013 MEDG EN ([facility] 12:00:00 AM EST Medical, PC) Colonoscopy (procedure) 03/26/2013 MEDG EN ([facility] 12:00:00 AM EST Medical, PC) Colonoscopy (procedure) 03/26/2013 MEDG EN ([facility] 12:00:00 AM EST Medical, PC) Results ID Date Data Source [id number] 11/11/2019 11:35:00 AM EDT [facility] Name Value Range Interpretation Description Data Sup porting Code Source(s) Document(s ) SARS [facility] coronavirus 2 RNA This lab was ordered by JUAN fernando [facility] and reported by [facility]. Procedure Social History Code Duration Value Status Description Data Source(s ) Smoking 11/20/2019 Tobacco Status: completed Tobacco Status: MEDG EN (St 12:00:00 AM Never smoker Never smoker Juanito's dical, EDT Marital Status Marital Status PC) Household Household Members 2 Lives Members 2 Lives Independently Yes Independently Yes Number of Children Number of Childre n 2 (stepchildren) 2 (stepchildren) Occupation Occupation contractor Diet contractor Diet and Exercise Well and Exercise Well Balanced Diet Daily Balanced Diet Da césar or Most days or Most days Exercise Frequency Exercise Frequenc y Other (has physical Other (has physi marcus ... job) Alcohol Use Social Smoking 11/20/2019 Never smoked completed Never smoked MEDGEN (St 12:00:00 AM [facility] l, EDT PC) Smoking 11/11/2019 Tobacco Status: completed Tobacco Status: MEDG EN (St 12:00:00 AM Never smoker Never smoker [facility]ito[facility] dical, EDT Marital Status Marital Status PC) Household Household Members 2 Lives Members 2 Lives Independently Yes Independently Yes Number of Children Number of Childre n 2 (stepchildren) 2 (stepchildren) Occupation Occupation contractor Diet contractor Diet and Exercise Well and Exercise Well Balanced Diet Daily Balanced Diet Da césar or Most days or Most days Exercise Frequency Exercise Frequenc y Other (has physical Other (has physi marcus ... job) Alcohol Use Social Smoking 11/11/2019 Never smoked completed Never smoked MEDGEN (St 12:00:00 AM Juanito Myles barlow T ) Smoking 10/10/2019 Tobacco Status: completed Tobacco Status: MEDG EN (St 12:00:00 AM Never smoker Never smoker Micaela PAM Zeng Marital Status Marital Status ) Household Household Members 2 Lives Members 2 Lives Independently Yes Independently Yes Number of Children Number of Childre n 2 (stepchildren) 2 (stepchildren) Occupation Occupation contractor Diet contractor Diet and Exercise Well and Exercise Well Balanced Diet Daily Balanced Diet Da césar or Most days or Most days Exercise Frequency Exercise Frequenc y Other (has physical Other (has physi marcus ... job) Alcohol Use Social Smoking 10/10/2019 Never smoked completed Never smoked MEDGEN (St 12:00:00 AM Juanitochristelle PAM Singer ) Vital Signs ID Date Data Source UNK Name Value Range Interpretation Code Description Data Source(s) Heart rate 67 /min 67 /min MEDGEN ([facility]) Respiratory rate 16 /min 16 /min MEDGEN ( [facility]) Inhaled oxygen 98 % 98 % MEDGEN ([facility]) Body mass index 37 kg/m2 37 kg/m2 MEDGEN (S t (BMI) [Ratio] [facility]) Diastolic blood 86 mm[Hg] 86 mm[Hg] MEDGEN (S t pressure [facility]) Systolic blood 158 mm[Hg] 158 mm[Hg] MEDGEN ([facility]) Body weight 236 lb 236 lb MEDGEN ([facility]) Body height 67 in 67 in MEDGEN ([facility]) Heart rate 67 /min 67 /min MEDGEN ([facility]) Respiratory rate 16 /min 16 /min MEDGEN ( [facility]) Inhaled oxygen 98 % 98 % MEDGEN ([facility]) Body mass index 37 kg/m2 37 kg/m2 MEDGEN (S t (BMI) [Ratio] [facility]) Diastolic blood 86 mm[Hg] 86 mm[Hg] MEDGEN (S t pressure [facility] ) Systolic blood 158 mm[Hg] 158 mm[Hg] MEDGEN ([facility] , ) Body weight 236 lb 236 lb MEDGEN ([facility]) Body height 67 in 67 in MEDGEN ([facility]) Heart rate 58 /min 58 /min MEDGEN ([facility] Respiratory rate 16 /min 16 /min MEDGEN ( [facility] , ) Body temperature 97.5 F 97.5 F MEDGEN ( [facility]) Inhaled oxygen 98 % 98 % MEDGEN ([facility], ) Body mass index 37 kg/m2 37 kg/m2 MEDGEN (S t (BMI) [Ratio] [facility], ) Diastolic blood 84 mm[Hg] 84 mm[Hg] MEDGEN (S t pressure [facility] , ) Systolic blood 152 mm[Hg] 152 mm[Hg] MEDGEN ([facility] ) Body weight 236 lb 236 lb MEDGEN ([facility]) Body height 67 in 67 in MEDGEN ([facility]) Heart rate 58 /min 58 /min MEDGEN ([facility]) Respiratory rate 16 /min 16 /min MEDGEN ( [facility]) Body temperature 97.5 F 97.5 F MEDGEN ( [facility]) Inhaled oxygen 98 % 98 % MEDGEN ([facility], ) Body mass index 37 kg/m2 37 kg/m2 MEDGEN (S t (BMI) [Ratio] [facility], ) Diastolic blood 84 mm[Hg] 84 mm[Hg] MEDGEN (S t pressure [facility]) Systolic blood 152 mm[Hg] 152 mm[Hg] MEDGEN ([facility] ) Body weight 236 lb 236 lb MEDGEN ([facility]) Body height 67 in 67 in MEDGEN ([facility]) Heart rate 58 /min 58 /min MEDGEN ([facility]) Respiratory rate 16 /min 16 /min MEDGEN ( [facility]) Body temperature 97.5 F 97.5 F MEDGEN ( [facility]) Inhaled oxygen 98 % 98 % MEDGEN ([facility]) Body mass index 37 kg/m2 37 kg/m2 MEDGEN (S t (BMI) [Ratio] [facility], ) Diastolic blood 84 mm[Hg] 84 mm[Hg] MEDGEN (S t [facility]) Systolic blood 152 mm[Hg] 152 mm[Hg] MEDGEN ([facility]) Body weight 236 lb 236 lb MEDGEN ([facility]) Body height 67 in 67 in MEDGEN ([facility]) Heart rate 63 /min 63 /min MEDGEN ([facility]) Respiratory rate 17 /min 17 /min MEDGEN ( [facility]) Body temperature 98.5 F 98.5 F MEDGEN ( [facility]) Inhaled oxygen 97 % 97 % MEDGEN ([facility]) Body mass index 38.9 kg/m2 38.9 kg/m2 MEDGEN (S t (BMI) [Ratio] [facility]) Diastolic blood 67 mm[Hg] 67 mm[Hg] MEDGEN ([facility]) Systolic blood 117 mm[Hg] 117 mm[Hg] MEDGEN ([facility]) Body weight 243 lb 243 lb MEDGEN ([facility]) Body height 66.25 in 66.25 in MEDGEN ([facility]) Heart rate 63 /min 63 /min MEDGEN ([facility]) Respiratory rate 17 /min 17 /min MEDGEN ( [facility]) Body temperature 98.5 F 98.5 F MEDGEN ( [facility]) Inhaled oxygen 97 % 97 % MEDGEN ([facility]) Body mass index 38.9 kg/m2 38.9 kg/m2 MEDGEN (S t (BMI) [Ratio] [facility]) Diastolic blood 67 mm[Hg] 67 mm[Hg] MEDGEN (S t [facility]) Systolic blood 117 mm[Hg] 117 mm[Hg] MEDGEN ([facility]) Body weight 243 lb 243 lb MEDGEN ([facility]) Body height 66.25 in 66.25 in MEDGEN ([facility]) Heart rate 63 /min 63 /min MEDGEN ([facility]) Respiratory rate 17 /min 17 /min MEDGEN ( [facility]) Body temperature 98.5 F 98.5 F MEDGEN ( [facility]) Inhaled oxygen 97 % 97 % MEDGEN ([facility]) Body mass index 38.9 kg/m2 38.9 kg/m2 MEDGEN (S t (BMI) [Ratio] [facility]) Diastolic blood 67 mm[Hg] 67 mm[Hg] MEDGEN (S t [facility]) Systolic blood 117 mm[Hg] 117 mm[Hg] MEDGEN ([facility]) Body weight 243 lb 243 lb MEDGEN ([facility]) Body height 66.25 in 66.25 in MEDGEN ([facility]) Heart rate 76 /min 76 /min MEDGEN ([facility]) Respiratory rate 15 /min 15 /min MEDGEN ( [facility]) Body temperature 98.1 F 98.1 F MEDGEN ( [facility]) Body mass index 37.6 kg/m2 37.6 kg/m2 MEDGEN (S t (BMI) [Ratio] [facility]) Diastolic blood 66 mm[Hg] 66 mm[Hg] MEDGEN (S t pressure [facility]) Systolic blood 118 mm[Hg] 118 mm[Hg] MEDGEN ([facility]) Body weight 235 lb 235 lb MEDGEN ([facility]) Body height 66.25 in 66.25 in MEDGEN ([facility]) Heart rate 76 /min 76 /min MEDGEN ([facility]) Respiratory rate 15 /min 15 /min MEDGEN ( [facility]) Body temperature 98.1 F 98.1 F MEDGEN ( [facility]) Body mass index 37.6 kg/m2 37.6 kg/m2 MEDGEN (S t (BMI) [Ratio] [facility], ) Diastolic blood 66 mm[Hg] 66 mm[Hg] MEDGEN (S t pressure [facility]) Systolic blood 118 mm[Hg] 118 mm[Hg] MEDGEN ([facility]) Body weight 235 lb 235 lb MEDGEN ([facility]) Body height 66.25 in 66.25 in MEDGEN ([facility]) Heart rate 76 /min 76 /min MEDGEN ([facility]) Respiratory rate 15 /min 15 /min MEDGEN ( [facility]) Body temperature 98.1 F 98.1 F MEDGEN ( [facility]) Body mass index 37.6 kg/m2 37.6 kg/m2 MEDGEN (S t (BMI) [Ratio] [facility], ) Diastolic blood 66 mm[Hg] 66 mm[Hg] MEDGEN (S t pressure [facility]) Systolic blood 118 mm[Hg] 118 mm[Hg] MEDGEN ([facility]) Body weight 235 lb 235 lb MEDGEN ([facility]) Body height 66.25 in 66.25 in MEDGEN ([facility]) Heart rate 64 /min 64 /min MEDGEN ([facility]) Respiratory rate 15 /min 15 /min MEDGEN ( [facility]) Body mass index 38.1 kg/m2 38.1 kg/m2 MEDGEN (S t (BMI) [Ratio] [facility], ) Diastolic blood 74 mm[Hg] 74 mm[Hg] MEDGEN (S t pressure [facility]) Systolic blood 104 mm[Hg] 104 mm[Hg] MEDGEN ([facility]) Body weight 238 lb 238 lb MEDGEN ([facility]) Body height 66.25 in 66.25 in MEDGEN ([facility]) Heart rate 64 /min 64 /min MEDGEN ([facility]) Respiratory rate 15 /min 15 /min MEDGEN ( [facility]) Body mass index 38.1 kg/m2 38.1 kg/m2 MEDGEN (S t (BMI) [Ratio] [facility], ) Diastolic blood 74 mm[Hg] 74 mm[Hg] MEDGEN (S t pressure [facility] , ) Systolic blood 104 mm[Hg] 104 mm[Hg] MEDGEN ([facility] ) Body weight 238 lb 238 lb MEDGEN ([facility]) Body height 66.25 in 66.25 in MEDGEN ([facility] , ) Heart rate 64 /min 64 /min MEDGEN ([facility] , ) Respiratory rate 15 /min 15 /min MEDGEN ( [facility] , ) Body mass index 38.1 kg/m2 38.1 kg/m2 MEDGEN (S t (BMI) [Ratio] [facility], ) Diastolic blood 74 mm[Hg] 74 mm[Hg] MEDGEN (S t pressure [facility] , ) Systolic blood 104 mm[Hg] 104 mm[Hg] MEDGEN ([facility] , ) Body weight 238 lb 238 lb MEDGEN ([facility]) Body height 66.25 in 66.25 in MEDGEN ([facility] , ) Heart rate 62 /min 62 /min MEDGEN ([facility] , ) Respiratory rate 15 /min 15 /min MEDGEN ( [facility] , ) Body mass index 36.8 kg/m2 36.8 kg/m2 MEDGEN (S t (BMI) [Ratio] [facility], ) Diastolic blood 70 mm[Hg] 70 mm[Hg] MEDGEN (S t pressure [facility] , ) Systolic blood 126 mm[Hg] 126 mm[Hg] MEDGEN ([facility] , ) Body weight 230 lb 230 lb MEDGEN ([facility] , ) Body height 66.25 in 66.25 in MEDGEN ([facility]) Heart rate 62 /min 62 /min MEDGEN ([facility] , ) Respiratory rate 15 /min 15 /min MEDGEN ( [facility] , ) Body mass index 36.8 kg/m2 36.8 kg/m2 MEDGEN (S t (BMI) [Ratio] [facility], ) Diastolic blood 70 mm[Hg] 70 mm[Hg] MEDGEN (S t pressure [facility] , ) Systolic blood 126 mm[Hg] 126 mm[Hg] MEDGEN ([facility] , ) Body weight 230 lb 230 lb MEDGEN ([facility]) Body height 66.25 in 66.25 in MEDGEN ([facility]) Heart rate 62 /min 62 /min MEDGEN ([facility] , ) Respiratory rate 15 /min 15 /min MEDGEN ( [facility] , ) Body mass index 36.8 kg/m2 36.8 kg/m2 MEDGEN (S t (BMI) [Ratio] [facility], ) Diastolic blood 70 mm[Hg] 70 mm[Hg] MEDGEN (S t pressure [facility] , ) Systolic blood 126 mm[Hg] 126 mm[Hg] MEDGEN ([facility] ) Body weight 230 lb 230 lb MEDGEN ([facility]) Body height 66.25 in 66.25 in MEDGEN ([facility]) Heart rate 68 /min 68 /min MEDGEN ([facility]) Respiratory rate 16 /min 16 /min MEDGEN ( [facility]) Body mass index 36 kg/m2 36 kg/m2 MEDGEN (S t (BMI) [Ratio] [facility], ) Diastolic blood 84 mm[Hg] 84 mm[Hg] MEDGEN (S t pressure [facility] , ) Systolic blood 154 mm[Hg] 154 mm[Hg] MEDGEN ([facility] , ) Body weight 237 lb 237 lb MEDGEN ([facility]) Body height 68 in 68 in MEDGEN ([facility]) Heart rate 68 /min 68 /min MEDGEN ([facility] , ) Respiratory rate 16 /min 16 /min MEDGEN ( [facility] , ) Body mass index 36 kg/m2 36 kg/m2 MEDGEN (S t (BMI) [Ratio] [facility], ) Diastolic blood 84 mm[Hg] 84 mm[Hg] MEDGEN (S t pressure [facility] , ) Systolic blood 154 mm[Hg] 154 mm[Hg] MEDGEN (St pressure [facility] , ) Body weight 237 lb 237 lb MEDGEN ([facility]) Body height 68 in 68 in [facility] ([facility]) Heart rate 68 /min 68 /min [facility] ([facility]) Respiratory rate 16 /min 16 /min [facility] ( [facility]) Body mass index 36 kg/m2 36 kg/m2 [facility] (S (BMI) [Ratio] [facility]) Diastolic blood 84 mm[Hg] 84 mm[Hg] [facility] (S t pressure [facility]) Systolic blood 154 mm[Hg] 154 mm[Hg] [facility] ([facility]) Body weight 237 lb 237 lb [facility] ([facility]) Body height 68 in 68 in [facility] ([facility])
[2020-01-20 11:14] VITALS: BP 161/100; PULSE 62
[2020-01-20 11:18] LABS: EOS % 3.4 % (0-4.5); HEMATOCRIT 45.8 % (35.4-49); HEMOGLOBIN 15.6 GM/dl (11.7-16.9); LYMPH % 28.9 % (8-40); MCH 31.1 pg (25.7-33.7); MEAN CELL VOLUME 91.4 fl (80-96); MONO % 7.4 % (3.8-10.2); NEUT % 59.3 % (42.8-82.8); PLATELET COUNT 326 K/MM3 (134-434); RBC 5.01 M/mm3 (4.00-5.60); RDW 12.8 % (11.9-15.9); WHITE BLOOD COUNT 7.2 K/mm3 (4.0-10.8)
[2020-01-20 11:24] LABS: ALBUMIN 4.3 g/dl (3.4-5.0); BILIRUBIN,TOTAL 1.1 mg/dl (0.2-1); CALCIUM 9.2 mg/dl (8.5-10); TOT PROT 7.5 g/dl (6.4-8.2)
--- NOTE | 2020-01-20 14:09 | EKG ---
Test Reason : Blood Pressure : / mmHG Vent. Rate : 059 BPM Atrial Rate : 059 BPM P-R Int : 128 ms QRS Dur : 098 ms QT Int : 424 ms P-R-T Axes : 000 000 023 degrees QTc Int : 419 ms SINUS BRADYCARDIA OTHERWISE NORMAL ECG NO PREVIOUS ECGS AVAILABLE Confirmed by BETHANY SANTORO MD ([id number]) on 01/20/2020 2:08:48 PM Referred By: JUANIS MORATAYA Confirmed By:BETHANY SANTORO MD
== END 2020-01-20 12:30 | disposition home or self-care (01) ==
LOC: FER 10:13
PROC: 3E0337Z Introduction of Electrolytic and Water Balance Substance into Peripheral Vein, Percutaneous Approach (ICD-10-PCS; principal; 2020-01-20)
DX: R42 Dizziness and giddiness (principal); I10 Essential (primary) hypertension
CPT/HCPCS: 36415; 80053; 81003; 82550; 84484; 85025; 93005; 99284-25

== ENCOUNTER 2021-08-11 10:32 | Day surgery (SDC) | payer OTHER ==
[2021-08-06 12:12] VITALS: BMI 39.1
[2021-08-11] MEDS ORDERED: oxyCODONE HCL 5 MG TABLET PO PRN (10:48)
[2021-08-11] MEDS ORDERED: ONDANSETRON 4 MG/2 ML VIAL IVPUSH PRN (10:48)
[2021-08-11] MEDS ORDERED: LACTATED RINGERS SOLUTION 1,000 ML IV SCH (11:00)
[2021-08-11] MEDS ORDERED: SUCCINYLCHOLINE CHLORIDE 200 MG/10 ML SYRINGE ONE (11:27)
[2021-08-11] MEDS ORDERED: PROPOFOL 20 ML ONE ×3 (11:27→12:26)
[2021-08-11] MEDS ORDERED: MIDAZOLAM HCL 2 MG/2 ML SINGLE DOSE VIAL ONE (11:27)
[2021-08-11] MEDS ORDERED: ONDANSETRON 4 MG/2 ML VIAL ONE (11:56)
[2021-08-11] MEDS ORDERED: DEXAMETHASONE SOD PHOSPHATE 4 MG/1 ML VIAL ONE (11:56)
[2021-08-11] MEDS ORDERED: BUPIVACAINE HCL/PF 0.25% (2.5MG/ML) 10 ML VIAL IJ ONE (12:20)
[2021-08-11] MEDS ORDERED: BUPIVACAINE HCL/PF 0.25% (2.5MG/ML) 10 ML VIAL ONE (12:26)
[2021-08-11 12:59] VITALS: TEMP 97.1
[2021-08-11 14:38] VITALS: BP 123/65; PULSE 58
== END 2021-08-11 14:25 | disposition home or self-care (01) ==
LOC: FASU 10:32
PROVIDERS: ATTEND Orthopaedic Surgery Hand Surgery
PROC: 01N54ZZ Release Median Nerve, Percutaneous Endoscopic Approach (ICD-10-PCS; principal; 2021-08-11 12:12)
DX: G56.01 Carpal tunnel syndrome, right upper limb (principal)
CPT/HCPCS: 94760